=== PATIENT | male | born 1945 | race Hispanic/Latino ===

== ENCOUNTER 2017-06-21 14:10 | Emergency (ER) | payer MEDICARE ==
[2017-06-21 14:10] VITALS: BMI 33.7
[2017-06-21 15:15] LABS: BASO # 0.03 K/mm3 (0.0-2.0); BASO % 0.4 % (0.0-3.0); EOS # 0.2 (0.0-0.7); EOS % 2.4 % (1.5-5.0); GRAN # 5.22 (1.4-6.5); GRAN % 68.7 % (50.0-68.0); HEMOGLOBIN 11.8 g/dL (14.0-18.0); LYMPH # 1.4 (1.2-3.4); LYMPH % 18.4 % (22.0-35.0); MEAN CELL VOLUME 92.4 fl (80.0-105.0); MEAN CORPUSCULAR HEMOGLOBIN 31.9 pg (25.0-35.0); MEAN CORPUSCULAR HGB CONC 34.5 g/dl (31.0-37.0); MEAN PLATELET VOLUME 10.5 fl (7.0-11.0); MONO # 0.8 (0.1-0.6); MONO % 10.1 % (1.0-6.0); RBC 3.7 10^6/uL (3.5-6.1); RED CELL DISTRIBUTION WIDTH 15.3 % (11.5-14.5); WHITE BLOOD COUNT 7.6 10^3/ul (4.5-11.0)
[2017-06-21] MEDS ORDERED: Sodium Chloride 0.9% 1,000 ML IV STA (15:16)
--- NOTE | 2017-06-21 15:21 | ED PDOC ---
Arrival/HPI - General Chief Complaint: Dizziness/Lightheaded Time Seen by Provider: 06/21/17 14:11 Historian: Patient - History of Present Illness Narrative History of Present Illness (Text): you were treated in the ED today for having right knee surgery about 1 week ago and took percocet/gabapentin and felt dizzy/lightheadness but otherwise without any nausea/vomiting/headache/difficulty breathing/chest pain/abdomen pain/ numbness/tingling/loss of limb function/pain with urination/prior blood clots/ prior cancer/recent travel. 06/21/17 15:17 Time/Duration: 4-6 hours Symptom Onset: Gradual Symptom Course: Improving Quality: Other (no current pain) Activities at Onset: Rest Context: Sitting Past Medical History - Provider Review Nursing Documentation Reviewed: Yes - Travel History Have you recently traveled outside [place] w/in the past 3 mons?: No - Tetanus Immunization Tetanus Immunization: Unknown - Cardiac Hx Cardiac Disorders: Yes Hx Hypertension: Yes - Pulmonary Hx Respiratory Disorders: No - Neurological Hx Neurological Disorder: No - HEENT Hx HEENT Disorder: No - Renal Hx Renal Disorder: No - Endocrine/Metabolic Hx Endocrine Disorders: No - Hematological/Oncological Hx Blood Disorders: No - Integumentary Hx Dermatological Disorder: No - Musculoskeletal/Rheumatological Hx Musculoskeletal Disorders: Yes - Gastrointestinal Hx Gastrointestinal Disorders: No - Genitourinary/Gynecological Hx Genitourinary Disorders: No - Psychiatric Hx Psychophysiologic Disorder: No Hx Substance Use: No - Surgical History Hx Orthopedic Surgery: Yes (R KNEE, L KNEE) - Anesthesia Hx Anesthesia Reactions: No Hx Malignant Hyperthermia: No - Suicidal Assessment Feels Threatened In Home Enviroment: No Family/Social History - Physician Review Nursing Documentation Reviewed: Yes Family/Social History: No Known Family HX Smoking Status: Former Smoker Hx Alcohol Use: Yes (OCCASIONAL) Hx Substance Use: No Hx Substance Use Treatment: No Allergies/Home Meds Allergies/Adverse Reactions: Allergies No Known Allergies Allergy (Verified 06/21/17 14:22) Home Medications: Home Meds Medication Instructions Recorded Confirmed Aspirin [Aspir 81] 81 mg PO DAILY 05/09/12 06/21/17 Carvedilol Phosphate [Coreg Cr] 40 mg PO DAILY 05/09/12 06/21/17 Ezetimibe/Simvastatin [Vytorin 10 1 tab PO DAILY 11/29/13 03/28/18 mg-40 mg] Losartan [Cozaar] 100 mg PO DAILY 02/22/13 06/21/17 Acetaminophen/Oxycodone Hydr 1 tab PO Q6 PRN 03/04/13 06/21/17 [Percocet 325 mg-5 mg] Review of Systems - Review of Systems Constitutional: Normal Eyes: Normal ENT: Normal Respiratory: Normal Cardiovascular: Normal Gastrointestinal: Normal Genitourinary Male: Normal Musculoskeletal: Normal Skin: Normal Neurological: Dizziness Endocrine: Normal Hemo/Lymphatic: Normal Psychiatric: Normal Physical Exam Vital Signs Reviewed: Yes Vital Signs Temp Pulse Resp BP Pulse Ox 06/21/17 14:58 60 16 105/69 96 06/21/17 14:24 97.8 F 65 16 84/54 L 91 L Temperature: Afebrile Blood Pressure: Normal Pulse: Regular Respiratory Rate: Normal Appearance: Positive for: Well-Appearing, Non-Toxic, Comfortable Pain Distress: None Mental Status: Positive for: Alert and Oriented X 3 Finger Stick Blood Glucose: 131 - Systems Exam Head: Present: Atraumatic, Normocephalic Pupils: Present: PERRL Extroacular Muscles: Present: EOMI Conjunctiva: Present: Normal Ears: Present: Normal Mouth: Present: Moist Mucous Membranes Pharnyx: Present: Normal Nose (External): Present: Atraumatic Nose (Internal): Present: Normal Inspection Neck: Present: Normal Range of Motion Respiratory/Chest: Present: Clear to Auscultation, Good Air Exchange Cardiovascular: Present: Regular Rate and Rhythm Abdomen: No: Tenderness, Distention, Normal Bowel Sounds, Peritoneal Signs, Rebound, Guarding, McBurney's Point Tender, Rovsing's Sign Present, Hernias, Feeding Tubes, Ostomy Tubes, Mass/Organomegaly, Scars, Other Upper Extremity: Present: Normal Inspection Lower Extremity: Present: Other (right knee healing wound without redness and otherwise mild swelling of the calf without tenderness and otherwise mild right lower leg bruising and otherwise good pink/warm/sensation/foot PT pulse positive ) Neurological: Present: GCS=15, CN II-XII Intact, Speech Normal, Motor Func Grossly Intact Skin: Present: Warm, Normal Color Psychiatric: Present: Alert, Oriented x 3, Normal Insight, Normal Concentration Medical Decision Making ED Course and Treatment: you were treated in the ED today for having right knee surgery about 1 week ago and took percocet/gabapentin and felt dizzy/lightheadness but otherwise without any nausea/vomiting/headache/difficulty breathing/chest pain/abdomen pain/ numbness/tingling/loss of limb function/pain with urination/prior blood clots/ prior cancer/recent travel. You were otherwise breathing easily, smiling and talking easily, good strength/sensation, walking, clear lungs, no abdomen tenderness, right knee healing wound without redness and otherwise mild swelling of the calf without tenderness and otherwise mild right lower leg bruising and otherwise good pink/warm/sensation/foot pulse positive, no fever temp 97.8, stable heart rate 65, stable breathing rate 16, stable oxygen level 91% and repeat 96% room air, initial low blood pressure 84/54 and repeat 105/69 which we recommend repeat in 2-3 days primary care office to determine further treatment, you have blood tests no infection count 7.6, stable blood level hemoglobin 11/platelets 184, stable chemistry, bun elevated mildly 24, creatinine elevated mildly 1.6, glucose mildly elevated 124, Liver bilirubin elevated 3.3, heart blood test negative less than 0.01, heart failure test 886 mildly elevated, radiology chest xray mild vascular markings, right lower extremity per pathological technician negative for deep vein clot, ECG normal sinus rhythm, intravenous fluids, observation done in the ED with improvement, recommend to stay in the hospital for further testing/observation but you refused and cautioned for complications/ and you stated you feel symptoms related to medications and will followup primary care tomorrow, counselled to monitor symptoms. 1. Recommend follow-up primary care tomorrow to review symptoms, consideration for ventillation/perfusion scan to ensure no chest findings of clot, ultrasound of abdomen for elevated bilirubin to ensure no complications and referral to cardiology, gastroenterology, pulmonary, urology, endocrine clinic to ensure no complications/cancer development. 4. If any worsening pain, fever, chills, nausea, vomiting, difficulty breathing, numbness, loss of limb function, pain with urination or any medical condition then return to the ED. 06/21/17 16:43 06/21/17 16:55 Reassessment Condition: Re-examined, Improved - Lab Interpretations Lab Results: 06/21/17 14:50 06/21/17 14:50 Lab Results 06/21/17 15:09: Troponin I < 0.01, NT-Pro-B Natriuret Pep 886 H 06/21/17 14:50: Sodium 141, Potassium 4.2, Chloride 103, Carbon Dioxide 27, Anion Gap 15, BUN 25 H, Creatinine 1.6 H, Est GFR ( Amer) 52, Est GFR ( Non-Af Amer) 43, Random Glucose 124 H, Calcium 9.8, Total Bilirubin 3.3 H, AST 34, ALT 34, Alkaline Phosphatase 84, Total Protein 7.5, Albumin 4.0, Globulin 3.5, Albumin/Globulin Ratio 1.1 06/21/17 14:50: PT 14.1 H, INR 1.23 H, APTT 30.2 06/21/17 14:50: WBC 7.6, RBC 3.70, Hgb 11.8 L, Hct 34.2 L, MCV 92.4, MCH 31.9, MCHC 34.5, RDW 15.3 H, Plt Count 184, MPV 10.5, Gran % 68.7 H, Lymph % (Auto) 18.4 L, [place] % (Auto) 10.1 H, Eos % (Auto) 2.4, Baso % (Auto) 0.4, Gran # 5.22, Lymph # (Auto) 1.4, [place] # (Auto) 0.8 H, Eos # (Auto) 0.2, Baso # (Auto) 0.03 I have reviewed the lab results: Yes - RAD Interpretation Radiology Orders: 06/21/17 15:14 CHEST ONE VIEW [RAD] Stat 06/21/17 15:15 DUPLEX LOWER EXTRM VEIN RIGHT [US] Stat 06/21/17 16:28 LUNG PERF & VENT SCAN [NM] Stat 06/21/17 16:44 GALL BLADDER [US] Stat - EKG Interpretation Interpreted by ED Physician: Yes (NSR, flipped t waves iii, avr, avf, v1, v2, v3 similar to 02/22/13) Type: 12 lead EKG - Medication Orders Current Medication Orders: Discontinued Medications Sodium Chloride (Sodium Chloride 0.9%) 1,000 mls @ 999 mls/hr IV .Q1H1M STA Stop: 06/21/17 16:16 Last Admin: 06/21/17 15:25 Dose: 999 mls/hr eMAR Start Stop Document 06/21/17 15:25 [facility] (Rec: 03/28/18 15:26 [facility] [id number]) Intravenous Solution Start Date 06/21/17 Start Time 15:26 End Date 06/21/17 End time 16:27 Total Infusion Time 61 Disposition/Present on Arrival - Present on Arrival Any Indicators Present on Arrival: Yes History of DVT/PE: No History of Uncontrolled Diabetes: No Urinary Catheter: No History of Decub. Ulcer: No History Surgical Site Infection Following: None - Disposition Have Diagnosis and Disposition been Completed?: Yes Diagnosis: Medication adverse effect Disposition: AGAINST MEDICAL ADVICE Disposition Time: 16:58 Patient Plan: Discharge Condition: IMPROVED Discharge Instructions (ExitCare): Side Effects From Medicines Additional Instructions: you were treated in the ED today for having right knee surgery about 1 week ago and took percocet/gabapentin and felt dizzy/lightheadness but otherwise without any nausea/vomiting/headache/difficulty breathing/chest pain/abdomen pain/ numbness/tingling/loss of limb function/pain with urination/prior blood clots/ prior cancer/recent travel. You were otherwise breathing easily, smiling and talking easily, good strength/sensation, walking, clear lungs, no abdomen tenderness, right knee healing wound without redness and otherwise mild swelling of the calf without tenderness and otherwise mild right lower leg bruising and otherwise good pink/warm/sensation/foot pulse positive, no fever temp 97.8, stable heart rate 65, stable breathing rate 16, stable oxygen level 91% and repeat 96% room air, initial low blood pressure 84/54 and repeat 105/69 which we recommend repeat in 2-3 days primary care office to determine further treatment, you have blood tests no infection count 7.6, stable blood level hemoglobin 11/platelets 184, stable chemistry, bun elevated mildly 24, creatinine elevated mildly 1.6, glucose mildly elevated 124, Liver bilirubin elevated 3.3, heart blood test negative less than 0.01, heart failure test 886 mildly elevated, radiology chest xray mild vascular markings, right lower extremity per pathological technician negative for deep vein clot, ECG normal sinus rhythm, intravenous fluids, observation done in the ED with improvement, recommend to stay in the hospital for further testing/observation but you refused and cautioned for complications/ and you stated you feel symptoms related to medications and will followup primary care tomorrow, counselled to monitor symptoms. 1. Recommend follow-up primary care tomorrow to review symptoms, consideration for ventillation/perfusion scan to ensure no chest findings of clot, ultrasound of abdomen for elevated bilirubin to ensure no complications and referral to cardiology, gastroenterology, pulmonary, urology, endocrine clinic to ensure no complications/cancer development. 4. If any worsening pain, fever, chills, nausea, vomiting, difficulty breathing, numbness, loss of limb function, pain with urination or any medical condition then return to the ED. Forms: [employer] ([employer])
[2017-06-21 15:23] LABS: ALB/GLOB RATIO 1.1 (1.1-1.8); CALCIUM 9.8 mg/dL (8.4-10.5); INR 1.23 (0.93-1.08); PARTIAL THROMBOPLASTIN TIME 30.2 Seconds (25.1-36.5); PROTHROMBIN TIME 14.1 SECONDS (9.4-12.5)
[2017-06-21 16:21] LABS: B-TYPE NATRIURETIC PEPTIDE 886 pg/mL (0-450); TROPONIN I < 0.01 ng/mL
--- NOTE | 2017-06-21 16:37 | RAD ---
PROCEDURE: CHEST RADIOGRAPH, 1 VIEW HISTORY: 71yoM, lightheadedness COMPARISON: None available. FINDINGS: LUNGS: Clear. PLEURA: No pneumothorax or pleural fluid seen. CARDIOVASCULAR: Mild cardiomegaly OSSEOUS STRUCTURES: No significant abnormalities. VISUALIZED UPPER ABDOMEN: Normal. OTHER FINDINGS: None. IMPRESSION: No active disease.
--- NOTE | 2017-06-21 19:17 | CARD ---
APPROVED REPORT EKG Measurement Heart [id number] <Conclusion> Normal sinus rhythm Inferior infarct, age undetermined Cannot rule out Anterior infarct, age undetermined Abnormal ECG
--- NOTE | 2017-06-21 19:59 | US ---
PROCEDURE: Right lower extremity venous US HISTORY: Leg pain and swelling. Evaluate for DVT. PHYSICIAN(S): Yosi Barkley M.D. TECHNIQUE: Duplex sonography and color-flow Doppler with graded compression were used to evaluate the deep venous system of the right lower extremity. The exam is limited by body habitus and edema. The tibial veins are not well seen FINDINGS: The visualized deep venous system of the right lower extremity is sonographically normal and compressible. Normal waveforms and augmentation are seen. There is no sonographic evidence for deep venous thrombosis in the visualized segments of the right lower extremity. IMPRESSION: 1. No sonographic evidence for deep venous thrombosis in the visualized segments of the right lower extremity.
[2017-06-22 11:04] VITALS: BP 116/76; PULSE 70; O2SAT 98
[2017-06-22 11:26] VITALS: RESP 18; TEMP 98
== END 2017-06-21 17:33 | disposition left against medical advice (07) ==
LOC: ED 14:10
DX: R42 Dizziness and giddiness (principal); T40.2X5A Adverse effect of other opioids, initial encounter; T42.6X5A Adverse effect of other antiepileptic and sedative-hypnotic drugs, initial encounter; I10 Essential (primary) hypertension; Z87.891 Personal history of nicotine dependence
CPT/HCPCS: 71045; 80053; 83880; 84484; 85025; 85610; 85730; 93005; 93971; 96360; 99285; J7040